=== PATIENT | female | born 1980 | race Caucasian/White ===

== ENCOUNTER → 2019-08-13 10:40 | Outpatient (CLI) | payer OTHER, SELFPAY ==
--- NOTE | 2019-08-13 10:52 | XR_ITS ---
PROCEDURE: XR SHOULDER LT MIN 2V CLINICAL INDICATION: LT SHOULDER PAIN Left shoulder pain COMPARISON: No exams were available for comparison FINDINGS: No fracture or dislocation. No lytic or blastic change. There is mild subacromial stenosis. No significant degenerative change. IMPRESSION: Subacromial stenosis otherwise negative Dictated by: Benjamin Mcneill MD 08/13/2019 11:22 Electronically signed by Benjamin Mcneill MD in [place] 08/13/2019 11:22
== END ==
PROVIDERS: PCP Internal Medicine Adolescent Medicine; Referring Provider Internal Medicine Adolescent Medicine; Visit Provider Internal Medicine Adolescent Medicine
DX: M25.512 Pain in left shoulder (principal)
CPT/HCPCS: 73030

== ENCOUNTER 2019-08-19 07:58 | Outpatient (RCR) | payer OTHER, SELFPAY ==
--- NOTE | 2019-08-19 10:42 | HMH.OTOPEV ---
OT Inpatient Evaluation Rehab OT Outpatient Eval Start: 08/19/19 10:26 Freq: Status: Active Protocol: Document 08/19/19 10:27 RMARSHALL (Rec: 08/19/19 10:[address] [id number] Electronically Signed By Rayshawn Adam OT 08/19/19 10:27 Outpatient Therapy Subjective History Subjective History Pt is a 39 year old female who reports to therapy for initial evaluation to L shoulder. Pt explains he initially injured her L shoulder ~2 week ago while she was giving her dog a bath. Pt's dog is 100+ lbs and she was holding him still with her left arm while the right arm did the washing. Since this she has had pain in left shoulder. Most of patients pain is in the posterior aspect along the medial border of scapula and into the armpit area. 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 Pt does demonstrate with decreased AROM and strength at L shoulder. Chief Complaint Pain,Stiff,Weakness Symptom Type Ache,Throb,Sharp,Dull,Burning, Tingling Symptoms Relieved By Rest/Positioning Symptoms Aggravated By Physical Activity,Lifting Prior Functional Limitations None Current Functional Limitations Reaching,Lifting,Housework, Dressing,Sleeping,Recreation Activity Symptom Description Constant but Variable Level of pain today (0-10) 5 Pain scale - at its best (0-10) 5 Pain scale - at its worst (0-10) 10 Shoulder/Elbow Eval Shoulder Objective Measurements Shoulder ROM Left Shoulder Abduction Active Range of 95 degrees Motion (degrees) Shoulder Flexion Active Range of Motion 110 degrees (degrees) Query Text: Shoulder External Rotation Active Range 20 degrees of Motion (degrees) Shoulder Internal Rotation Active Range 25 degrees of Motion (degrees) pain with active ROM shoulder exam left standard pain with passive ROM shoulder exam left standard decreased ROM shoulder exam standard left Shoulder MMT Shoulder Abduction Strength Grade 3 Fair Shoulder Extension Strength Grade 3+ Fair+ Shoulder Flexion Strength Grade 3
== END 2019-08-19 07:59 | disposition home or self-care (01) ==
LOC: OT 07:58
PROVIDERS: Visit Provider Internal Medicine Adolescent Medicine
DX: M25.512 Pain in left shoulder (principal)
CPT/HCPCS: 97166

== ENCOUNTER 2020-02-21 08:38 | Emergency (ER) | payer OTHER, SELFPAY ==
[2020-02-21 08:45] VITALS: BP 121/63; PULSE 113; RESP 17; TEMP 36.9; O2SAT 94; BMI 26.4
--- NOTE | 2020-02-21 08:50 | XR_ITS ---
PROCEDURE: XR FOREARM RT 2V CLINICAL INDICATION: abrasion Pain COMPARISON: No exams were available for comparison FINDINGS: No fracture or dislocation. No lytic or blastic change. There is normal mineralization. The joint spaces are well-preserved. No significant degenerative/arthritic changes. No erosive changes evident. Other findings:None. IMPRESSION: No acute findings. Dictated by: Benjamin Mcneill MD 02/21/2020 10:49 Benjamin Mcneill MD in [place] 02/21/2020 10:49
--- NOTE | 2020-02-21 08:51 | XR_ITS ---
PROCEDURE: XR HAND RT 2V CLINICAL INDICATION: injury Pain COMPARISON: No exams were available for comparison FINDINGS: No fracture or dislocation. No lytic or blastic change. There is normal mineralization. The joint spaces are well-preserved. No significant degenerative/arthritic changes. No erosive changes evident. Other findings:None. IMPRESSION: No acute findings. Dictated by: Benjamin Mcneill MD 02/21/2020 10:50 Benjamin Mcneill MD in [place] 02/21/2020 10:50
--- NOTE | 2020-02-21 08:54 | PC.NURSE ---
Dr Harvey spoke with [facility]. awaiting hospitalist.
[2020-02-21 08:58] VITALS: BP 116/63; PULSE 109; RESP 18; O2SAT 93
--- NOTE | 2020-02-21 08:59 | HMH.EDGENADL ---
ED Disposition Clinical Impression: Abrasion of right forearm Qualifiers: Encounter type: initial encounter Qualified Code(s): S50.811A - Abrasion of right forearm, initial encounter Lacerations of multiple sites of right arm Qualifiers: Encounter type: initial encounter Qualified Code(s): S41.111A - Laceration without foreign body of right upper arm, initial encounter Disposition: Home, Self-Care Condition on Discharge: Good Instructions: DI for Open Laceration Additional Instructions: Additional instructions for WOUND CARE: Clean the wound daily and a bandage. Return to the emergency room if increasing pain, swelling, redness, red streaks, pus drainage, or fever. Referrals: Kofi Mena MD [Primary Care Provider] - - Critical Care Critical Care Time: No Attestation: On 02/21/20, the high probability of a clinically significant, sudden or life threatening deterioration of the following system(s) required my full and direct attention, intervention and personal management. The time I documented below is in addition to time spent performing reported procedures but includes the following listed in this critical care notation. Medical Decision Making - Sherman Inquiry Pt receiving controlled substance: No Vital Signs: 02/21/20 08:45 02/21/20 08:58 02/21/20 09:25 Temperature 98.4 F Temperature Source Oral Pulse Rate [Right Radial] 113 H 109 H 112 H Respiratory Rate 17 18 20 Blood Pressure [Right Arm] 121/63 116/63 116/63 Blood Pressure Mean [Right Arm] 82 80 80 Blood Pressure Source [Right Arm] Automatic Cuff Automatic Cuff Blood Pressure Position [Right Arm] Sitting Sitting 02 Sat by Pulse Oximetry 94 L 93 L 96 Oxygen Delivery Method Room Air Room Air 02/21/20 09:47 Temperature Temperature Source Pulse Rate [Right Radial] 102 H Respiratory Rate 18 Blood Pressure [Right Arm] 103/60 L Blood Pressure Mean [Right Arm] 74 Blood Pressure Source [Right Arm] Automatic Cuff Blood Pressure Position [Right Arm] Sitting 02 Sat by Pulse Oximetry 97 Oxygen Delivery Method Room Air Orders (Tests/Meds): ED MEDICATIONS Discontinued Medications Generic Name Dose Route Start Last Admin Trade Name Freq PRN Reason Stop Dose Admin Acetaminophen 650 mg 02/21/20 10:00 02/21/20 10:03 Acetaminophen 325mg Tab PO 02/21/20 10:01 650 mg ONCE ONE Administration Tetanus/Reduced Diphtheria/Acell Pertussis 0.5 ml 02/21/20 08:50 02/21/20 09:01 Adacel Tdap 0.5ml Syringe IM 02/21/20 08:51 0.5 ml .ONCE ONE Administration ORDERS Category Date Time Status XR forearm RT 2V Stat Exams 02/21/20 08:50 Taken XR hand RT 2V Stat Exams 02/21/20 08:51 Taken - Radiology Data #1 Image(s): Forearm, Hand Image Reviewed: Yes I reviewed the patient's radiology image Negative no foreign body. General Adult HPI - General Chief complaint: Skin/Abscess/Foreign Body Stated complaint: ao arm thru a window Time Seen by Provider: 02/21/20 08:59 Mode of Arrival: Ambulatory Limitations: No Limitations Description of Symptoms (Recalled from ER Triage Doc. by RN): pt reports to ed with c/o right arm abrasions. pt states that a glass broke when she was cleaning it. - History of Present Illness HPI narrative: Put her right arm through a window when it broke while she was cleaning it. Has small lacerations and abrasions right hand and forearm. Some minimal abrasions of her left hand. Last tetanus in his age greater than 5 years ago. - Related Data Allergies Allergy/AdvReac Type Severity Reaction Status Date / Time INGREDIENT: NO KNOWN - NO Allergy Unknown Uncoded 05/14/17 14:42 KNOWN DRUG ALLERGY [facility] History - Hepatitis A Screen Drug use history?: No High risk sexual behaviors?: No History of sexually transmitted infection?: No Currently employed?: No Childcare worker?: No Do you have indoor plumbing?: Yes Do you have electricity?: Yes Attestation statement:
[2020-02-21 09:25] VITALS: BP 116/63; PULSE 112; RESP 20; O2SAT 96
[2020-02-21 09:47] VITALS: BP 103/60; PULSE 102; RESP 18; O2SAT 97
[2020-02-21 11:12] VITALS: BP 104/60; PULSE 97; RESP 14; TEMP 36.8; O2SAT 98
--- NOTE | 2020-02-21 11:13 | PC.NURSE ---
right arm wounds cleaned, applied neosporing and dry bandages applied. pt tolerated well.
== END 2020-02-21 11:13 | disposition home or self-care (01) ==
PROVIDERS: Emergency Provider Emergency Medicine; PCP Internal Medicine Adolescent Medicine
DX: S51.811A Laceration without foreign body of right forearm, initial encounter (principal); S61.412A Laceration without foreign body of left hand, initial encounter; W25.XXXA Contact with sharp glass, initial encounter; Y92.019 Unspecified place in single-family (private) house as the place of occurrence of the external cause; Z23 Encounter for immunization; F17.210 Nicotine dependence, cigarettes, uncomplicated
CPT/HCPCS: 73090; 73120; 90715; 99283

== ENCOUNTER 2020-07-17 08:58 | Emergency (ER) | payer OTHER, SELFPAY ==
--- NOTE | 2020-07-17 09:02 | XR_ITS ---
PROCEDURE: XR KNEE LT 3V CLINICAL INDICATION: fall COMPARISON: No exams were available for comparison FINDINGS: No fracture or dislocation. No lytic or blastic change. There is normal mineralization. The joint spaces are well-preserved. No significant degenerative/arthritic changes. No erosive changes evident. Diffuse soft tissue swelling medially and anteriorly IMPRESSION: Negative for acute fracture Dictated by: Dr. Tavares Cantu MD 07/17/2020 09:35 Dr. Tavares Cantu MD in [place] 07/17/2020 09:35
[2020-07-17 09:28] VITALS: BP 131/73; PULSE 88; RESP 19; TEMP 36.6; O2SAT 99; BMI 25.5
--- NOTE | 2020-07-17 09:35 | HMH.EDUTC ---
[facility] [place] Clinical Impression: Knee sprain Qualifiers: Encounter type: initial encounter Involved ligament of knee: other ligament Laterality: left Qualified Code(s): S83.8X2A - Sprain of other specified parts of left knee, initial encounter Disposition: Home, Self-Care Condition on Discharge: Good Instructions: How to Use Crutches, DI for Knee Sprain, How To Perform RICE (Rest, Ice, Compress, Elevate), How to Use a Knee Immobilizer Additional Instructions: *weight bearing as tolerated *RICE, Rest the extremity, Ice 15-20 minutes 3-4 times daily, Compress- wear the ne wrap as discussed as much as possible to help reduce swelling and pain, Elevate the extremity when at rest Knee immobilizer is for support and help control swelling, use it except in the shower. Be sure that is not to tight but not to loose either *Elevate when resting *Ibuprofen every 6-8 hours as needed for pain an inflammation. If need something more can take Tylenol in between doses of Ibuprofen to help Immediately follow up with your family doctor for new or worsening of symptoms, or no noticeable improvement over the next 3-5 days Return if needed Straight to ER if any life threatening symptoms Referrals: Felix Mercedes MD [Primary Care Provider] - As needed Forms: Work/School Release Time of Disposition: 09:41 Medical Decision Making - Sherman Inquiry Pt receiving controlled substance: No Sherman was queried for this patient: No Vital Signs: 07/17/20 09:28 07/17/20 09:51 Temperature 97.8 F 97.8 F Temperature Source Oral Pulse Rate 88 Pulse Rate [Right Brachial] 88 Respiratory Rate 19 19 Blood Pressure 131/73 Blood Pressure [Right Arm] 131/73 Blood Pressure Mean [Right Arm] 92 Blood Pressure Source [Right Arm] Automatic Cuff Blood Pressure Position [Right Arm] Sitting 02 Sat by Pulse Oximetry 99 Oxygen Delivery Method Room Air - Radiology Data #1 Image(s): Knee Image Reviewed: Yes I reviewed the patient's radiology image Preliminary Findings: No Fracture Seen [facility] [place] HPI - General Stated complaint: a/o 07/16 fell on left knee Time Seen by Provider: 07/17/20 09:35 Mode of Arrival: Ambulatory Source of Information: Patient Limitations: No Limitations Description of Symptoms (Recalled from Triage Doc. by RN): LEFT KNEE INJURY AFTER FALLING ON ICE @ 1100 YESTERDAY HEENT Symptoms (Recalled from RN notes): No Resp Symptoms (Recalled from RN notes): No Skin Symptoms (Recalled from RN notes): No MS Symptoms (Recalled from RN notes): Yes Functional Status (Recalled from RN notes): WNL - History of Present Illness Provider Complaint: Patient states that she slipped and fell on Ice yesterday and landed on her left knee and twisted it States that she has been having pain and burning on the side of her knee that sometimes radiates to the back of the knee States that also she has had some mild swelling and bruising noted on the knee and has cracked this knee cap before - Related Data Allergies Allergy/AdvReac Type Severity Reaction Status Date / Time No Known Allergies Allergy Verified 07/17/20 09:32 - Worker's Comp Is this a Worker's Comp case?: No [facility] History - Hepatitis A Screen Drug use history?: No High risk sexual behaviors?: No History of sexually transmitted infection?: No Currently employed?: No Childcare worker?: No Do you have indoor plumbing?: Yes Do you have electricity?: Yes Attestation statement:: This patient has been screened for Hepatitis A risk factors. I have reviewed the patient's past medical history: Yes Medical History: Denies:: Diabetes Mellitus Type 1, Diabetes Mellitus Type 2 - Social History Smoking Status: Current every day smoker # Packs/Day (cigarettes): 1 Alcohol Intake: never Alcohol Intake Frequency:: a few times a month Occupational Status: other ROS Obtained: Yes All systems reviewed & no additional complaints, Yes Systems reviewed as appropriate & no additional com
[2020-07-17 09:51] VITALS: BP 131/73; PULSE 88; RESP 19; TEMP 36.6; O2SAT 99
== END 2020-07-17 09:52 | disposition home or self-care (01) ==
PROVIDERS: Emergency Provider Nurse Practitioner; PCP Internal Medicine Adolescent Medicine
DX: S83.8X2A Sprain of other specified parts of left knee, initial encounter (principal); W00.0XXA Fall on same level due to ice and snow, initial encounter; Y92.89 Other specified places as the place of occurrence of the external cause; F17.210 Nicotine dependence, cigarettes, uncomplicated
CPT/HCPCS: 29505; 73562; 99202; G0463

== ENCOUNTER → 2021-01-10 10:06 | Outpatient (CLI) | payer OTHER, SELFPAY ==
[2021-01-10 10:46] LABS: Basophils # 0.1 K/mm3 (0-0.2); Basophils % 0.6 % (0.1-2.0); Eosinophils # 0.2 K/mm3 (0.0-0.4); Eosinophils % 1.5 % (0.1-12.0); Hematocrit 45.6 % (37.0-47.0); Hemoglobin 15.1 g/dL (12.2-16.2); Lymphocytes # 3.7 K/mm3 (0.7-4.5); Lymphocytes % 29.8 % (10-50); Mean Corpuscular HGB Conc 33.1 g/dL (31.8-35.4); Mean Corpuscular Hemoglobin 30.5 pg (27.0-31.2); Mean Corpuscular Volume 92.2 fl (81-99); Mean Platelet Volume 7.5 fl (7.4-10.4); Monocytes # 0.6 K/mm3 (0.1-1.0); Monocytes % 4.5 % (1.7-9.3); Neutrophils # 7.9 K/mm3 (1.8-7.8); Neutrophils % 63.6 % (37.0-80.0); Platelet Count 341 K/mm3 (142-424); Red Blood Count 4.94 M/mm3 (4.20-5.40); White Blood Count 12.3 K/mm3 (4.8-10.8)
[2021-01-10 10:58] LABS: Chloride 104 mmol/L (98-107); Sodium 140 mmol/L (136-145)
[2021-01-10 10:59] LABS: Potassium 4.2 mmoL/L (3.5-5.1)
[2021-01-10 11:01] LABS: Alanine Aminotransferase 14 U/L (12-78); Albumin Level 4.2 g/dl (3.5-5.0); Albumin/Globulin Ratio 1.4 (1.1-1.8); Alkaline Phosphatase 76 U/L (38-126); Anion Gap 11.2 mEq/L (5-15); Aspartate Amino Transferase 23 U/L (14-36); Bilirubin,Total 0.4 mg/dl (0.2-1.3); Blood Urea Nitrogen 8 mg/dl (7-17); Calcium 9.4 mg/dl (8.4-10.2); Carbon Dioxide 29 mmol/L (22.0-30.0); Estimated Glomerular Filt Rate 111 ml/min (>60); GFR (African American) 134 ML/MIN (>60); Globulin 2.9 g/dL (1.3-3.2); Glucose 99 mg/dl (74-100); Total Protein,Serum 7.1 g/dl (6.3-8.2)
[2021-01-10 19:40] LABS: Triiodothryronine (T3) Uptake 32 % (23.5-40.5)
[2021-01-10 19:41] LABS: Free Thyroxine Index 3.8 ug/dL (5.93-13.13)
[2021-01-10 19:55] LABS: Thyroid Stimulating Hormone < 0.02 uIU/mL (0.465-4.68)
[2021-01-12 08:52] LABS: Thyroid Peroxidase Antibodies 78 IU/mL (0-34)
== END ==
PROVIDERS: Visit Provider Internal Medicine Adolescent Medicine
DX: Z01.89 Encounter for other specified special examinations (principal); F31.9 Bipolar disorder, unspecified
CPT/HCPCS: 36415; 80053; 84436; 84443; 84445; 84479; 85025; 86376

== ENCOUNTER → 2021-01-20 14:12 | Outpatient (CLI) | payer OTHER, SELFPAY ==
--- NOTE | 2021-01-20 14:14 | US_ITS ---
PROCEDURE: US THYROID CLINICAL INDICATION: DANIEL THYROIDITIS COMPARISON: No exams were available for comparison FINDINGS: Right lobe: 4.1 x 1.2 x 2 cm. There is heterogeneous echogenicity with no calcifications well-circumscribed. There is a 1.4 x 4.5 cm slightly hypoechoic nodule in the upper pole with heterogeneous echogenicity TR level 3 less than 1.5 cm. 8 x 4 mm hypoechoic nodule. The margins are slightly ill-defined. No obvious calcifications, TR level 3 Left lobe: 4.6 x 1.1 x 1.7 cm with heterogeneous echogenicity. 8 x 6 mm upper pole nodule slightly hypoechoic. No internal calcifications Isthmus: 3 mm in thickness unremarkable Additional findings: IMPRESSION: Mildly enlarged thyroid gland with heterogeneous echogenicity. Bilateral TR level 3 nodules less than 1.5 cm. Suggest 6 month follow-up to confirm stability. Dictated by: Benjamin Mcneill MD 01/20/2021 16:26 Benjamin Mcneill MD in [place] 01/20/2021 16:26
== END ==
PROVIDERS: PCP Internal Medicine Adolescent Medicine; Visit Provider Internal Medicine Adolescent Medicine
DX: E06.3 Autoimmune thyroiditis (principal)
CPT/HCPCS: 76536

== ENCOUNTER → 2021-04-11 09:33 | Outpatient (CLI) | payer OTHER, SELFPAY ==
[2021-04-11 10:46] LABS: Free Thyroxine Index 4.7 ug/dL (5.93-13.13); T4 (Thyroxine) 13.4 ug/dl (5.53-11.0); Triiodothryronine (T3) Uptake 35 % (23.5-40.5)
[2021-04-11 11:00] LABS: Thyroid Stimulating Hormone < 0.02 uIU/mL (0.465-4.68)
[2021-04-12 08:16] LABS: Thyroid Peroxidase Antibodies 80 IU/mL (0-34)
[2021-04-13 06:11] LABS: Thyroid Stimulating Immunoglob 0.89 IU/L (0.00-0.55)
== END ==
PROVIDERS: Visit Provider Internal Medicine Adolescent Medicine
DX: E06.3 Autoimmune thyroiditis (principal)
CPT/HCPCS: 36415; 84436; 84443; 84445; 84479; 86376

== ENCOUNTER → 2021-07-03 12:42 | Outpatient (CLI) | payer OTHER, SELFPAY ==
--- NOTE | 2021-07-03 12:48 | US_ITS ---
FINAL REPORT CLINICAL HISTORY: DANIEL THYROIDITIS FINDINGS: THYROID ULTRASOUND Sonographic images of the thyroid was obtained. The right lobe of the thyroid measures 1.5 x 4.5 x 1.6 cm. The left lobe of the thyroid measures 1.3 x 4.0 x 1.3 cm. The isthmus measures 3 mm. There are 2 nodules in the right lobe. The 1st is mostly cystic and measures 6 x 6 x 6 mm, TI-RADS 1. The 2nd nodule is solid, isoechoic and measures 20 x 6 x 7 mm, TI-RADS 3. There is a solid, hypoechoic left lobe nodule measuring 7 x 3 x 5 mm, TI-RADS 4. IMPRESSION: Bilateral thyroid nodules as described. Recommend follow-up ultrasound in 6 months. Reviewed, Interpreted and Dictated by Ramos Hook III, MD Transcribed by Nadiya King Authenticated by Ramos Hook III, MD on 07/03/2021 03:42:57 PM [facility]
== END ==
PROVIDERS: PCP Internal Medicine Adolescent Medicine; Visit Provider Internal Medicine Adolescent Medicine
DX: E06.3 Autoimmune thyroiditis (principal)
CPT/HCPCS: 76536